=== PATIENT | female | born 1995 | race Caucasian/White ===

== ENCOUNTER 2016-08-14 09:43 | Emergency (ER) | payer OTHER ==
[~2016-08-14] VITALS: Ht 154.9 cm; Wt 53.8 kg
[2016-08-14 09:45] VITALS: TEMP 36.6; Ht 154.9 cm; Wt 53.8 kg
[2016-08-14] MEDS ORDERED: XYLOCAINE 1%/SOD BICARB 20 ML VIAL INFIL STA (09:53)
--- NOTE | 2016-08-14 09:59 | EMERGENCY ROOM VISIT NOTE ---
History Report prepared by Liz: Deny Ch Under the Supervision of: Dr. Ayo Santana M.D. 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 The patient was cutting cilantro while working at [employer] when she accidently cut the finger, which has been bleeding since. The pain associated with the cut is rated 7/10 in severity. The patient has had a tetanus shot within the past 10 years. Source of History: patient Onset: earlier this morning Position: finger(s) (second left) Symptom Intensity: 7/10 Quality: other (laceration) Timing: constant Review of Systems See HPI for pertinent positives & negatives. A total of 10 systems reviewed and were otherwise negative. Past Medical & Surgical Medical Problems: (1) No known health problems Family History No pertinent family history Social History Smoking Status: Current Every Day Smoker Alcohol Use: occasionally Occupation Status: employed Current/Historical Medications Scheduled Pantoprazole (Protonix), 40 MG PO DAILY Phenazopyridine HCl (Pyridium), 200 MG PO TID Sulfamethoxazole-Trimethoprim (Bactrim Ds 800MG/160MG), 1 TAB PO BID Scheduled PRN Ondansetron Hcl (Zofran), 4 MG PO Q8 PRN for Nausea Allergies Coded Allergies: No Known Allergies (Unverified , 08/14/16) Physical Exam Vital Signs Date Time Temp Pulse Resp B/P Pulse Ox O2 Delivery O2 Flow Rate FiO2 08/14/16 11:03 65 16 98/58 97 Room Air 08/14/16 09:45 36.6 74 18 111/70 100 Room Air Physical Exam GENERAL: Patient is a healthy-appearing well-nourished HEAD: Normocephalic atraumatic EYES: Ocular movements intact pupils equal and react to light OROPHARYNX mucous membranes are moist no exudates present no erythema or edema present NECK: Supple no nuchal rigidity CHEST: Good equal expansion LUNGS: Clear and equal to auscultation CARDIAC: Normal S1 and S2 ABDOMEN: Soft nontender no guarding BACK: No CVA tenderness EXTREMITIES: Tri-stellate laceration 2.6 cm in total length to the left second finger. NEURO: Patient is following commands is answering questions appropriately. Alert and oriented x3 Cranial Nerves 2-12 grossly intact Medical Decision & Procedures Procedure Location: Left 2nd finger. Total length: 2.6 cm. Complexity: Tri-stellate. Verbal consent was obtained after the risks and benefits were explained, including but not limited to bleeding, scarring, infection, pain, and bone/joint /nerve damage. At this time, the risks of the procedure are less than the risks of NOT performing the procedure. A time out was taken and the correct patient and site identified. The skin was prepped with betadine. The target area was anesthetized with 1% lidocaine without epinephrine. The skin was re-prepped with betadine and a sterile field set. The wound was explored for foreign bodies and none found. Examination revealed no injury to deep structures such as tendons, bone, or significant blood vessels. Debridement was not performed. The wound edges were approximated using 8, 4-0 simple interrupted nylon sutures. Hemostasis and excellent approximation was achieved. Antibacterial ointment and a sterile dressing applied. Detailed wound care instructions and signs and symptoms of infection reviewed with the patient. No complications and the patient tolerated the procedure well. ED Course 0952: Past medical records reviewed. The patient was evaluated in room B3b. A complete history and physical examination was performed. 0955: Laceration repaired by my Nurse Practitioner student under my supervision. Please see procedural note above. 1055: Reassessed the patient. Discussed the treatment plan with the patient and her mother. They verbalized understanding and agreement. The patient is ready for discharge. Medical Decision This is a 21-year-old female who presents emergency Department with a laceration to her finger. Her tetanus is up-to-date. The laceration was repaired as above. The patient will follow-up in 7-10 days to have the sutures removed. Patient was in agreement with treatment plan. Impression Primary Impression: Laceration Scribe Attestation The scribe's documentation has been prepared under my direction and personally reviewed by me in its entirety. I confirm that the note above accurately reflects all work, treatment, procedures, and medical decision making performed by me. Departure Information Dispostion Home / Self-Care Referrals Barrie Goodwin D.O. (PCP) Forms HOME CARE DOCUMENTATION FORM, IMPORTANT VISIT INFORMATION, School Instructions, Work Instructions Patient Instructions ED Laceration Ext Skin Glue, ED Scar Tips to Minimize, [facility] Additional Instructions Sutures out in 7-10 days You have been examined and treated today on an emergency basis only. This is not a substitute for, or an effort to provide, complete comprehensive medical care. It is impossible to recognize and treat all injuries or illnesses in a single emergency department visit. It is therefore important that you follow up closely with Dr Goodwin. Call as soon as possible for an appointment. Thank you for your time and consideration. I look forward to speaking with you again soon. Please don't hesitate to call us if you have any questions.
[2016-08-14 11:03] VITALS: BP 98/58; PULSE 65; O2SAT 97
[2016-08-14] MEDS ORDERED: ONDA4TAB46 PO (11:04)
[2016-08-14] MEDS ORDERED: PHEN-876 PO (11:04)
[2016-08-14] MEDS ORDERED: SULF800T23 PO (11:04)
[2016-08-14] MEDS ORDERED: PANT40TA PO (11:04)
== END 2016-08-14 11:10 | disposition home or self-care (01) ==
LOC: C.EDB 09:46
DX: S61.211A Laceration without foreign body of left index finger without damage to nail, initial encounter (principal); W26.0XXA Contact with knife, initial encounter; F17.200 Nicotine dependence, unspecified, uncomplicated

== ENCOUNTER 2017-04-27 22:55 | Inpatient (IN) | payer BC, OTHER ==
[~2017-04-27] VITALS: Ht 154.9 cm; Wt 63.6 kg
[~2017-04-27 22:55] MED LIST: ONDA4TAB46 PO; PANT40TA PO; PHEN-876 PO; SULF800T23 PO
[2017-04-27] MEDS ORDERED: PRENTAB26 PO (23:42)
[2017-04-27] MEDS ORDERED: NURSING VERBAL MED ORDER ONE (23:45)
[2017-04-27 23:47] VITALS: Ht 154.9 cm; Wt 63.6 kg
[2017-04-28 00:04] LABS: HEMATOCRIT 35.9 % (37-47); MEAN CELL VOLUME 92.1 fL (80-100); MEAN CORPUSCULAR HEMOGLOBIN 31.5 pg (25-34); MEAN CORPUSCULAR HGB CONC 34.3 g/dl (32-36); MEAN PLATELET VOLUME 10.5 fL (7.4-10.4); PLATELET COUNT 210 K/uL (130-400); WHITE BLOOD COUNT 10.44 K/uL (4.8-10.8)
[2017-04-28] MEDS ORDERED: LACTATED RINGER'S 1000ML 1,000 ML IV ONE (01:15)
[2017-04-28] MEDS ORDERED: LACTATED RINGER'S 1000ML 500 ML IV PRN ×2 (07:34→15:59)
[2017-04-28] MEDS ORDERED: OXYTOCIN 30 UNITS/500ML NSS IV PRN ×2 (07:45→22:45)
[2017-04-28] MEDS: LACTATED RINGER'S 1000ML 1,000 ML IV SCH ×3 (09:06→18:45)
[2017-04-28] MEDS ORDERED: BUTORPHANOL TARTRATE 1 MG/ML VIAL IV STA (11:49)
[2017-04-28] MEDS ORDERED: FENTANYL 2MCG/ML ROPIV 1.25MG/ML 100ML BAG EPI ONE (14:04)
[2017-04-28] MEDS ORDERED: BUPIVACAINE 0.25% 30 ML VIAL ONE (14:04)
[2017-04-28] MEDS ORDERED: EpHEDrine SULFATE INJ 50 MG/ML AMP ONE (14:04)
[2017-04-28] MEDS ORDERED: FENTANYL CITRATE INJ 50 MCG/1 ML 2 ML VIAL ONE (14:05)
[2017-04-28] MEDS: AMPICILLIN IV 1 GM in SODIUM CHLOR 0.9% AD-VAN 50ML 50 ML IV SCH ×3 (15:08→20:22)
[2017-04-28] MEDS ORDERED: NALOXONE HCL INJ 1 MG in SODIUM CHLORIDE 0.9% 1000ML 1,000 ML IV PRN (15:59)
[2017-04-28] MEDS ORDERED: PROMETHAZINE HCL INJ 6.25 MG in SODIUM CHLORIDE 0.9% 50ML 50 ML IV PRN (16:00)
[2017-04-28] MEDS ORDERED: EpHEDrine SULFATE INJ 50 MG/ML AMP IV PRN (16:00)
[2017-04-28] MEDS ORDERED: FENTANYL 2MCG/ML ROPIV 1.25MG/ML 100ML BAG EPI PRN (16:00)
[2017-04-28] MEDS ORDERED: NALOXONE HCL INJ 0.4 MG/1 ML VIAL/CARP IV PRN (16:00)
[2017-04-28] MEDS ORDERED: DiphenhydrAMINE HCL 50 MG/ML VIAL IV PRN (16:00)
[2017-04-28] MEDS ORDERED: NALBUPHINE HCL INJ 10 MG/ML AMP IV PRN (16:00)
[2017-04-28] MEDS ORDERED: ONDANSETRON INJ 2 MG/ML 2 ML VIAL IV PRN (16:00)
[2017-04-28] MEDS ORDERED: CLINDAMYCIN IV 600 MG in DEXTROSE 5% 50ML 50 ML IV STA (22:28)
[2017-04-28] MEDS ORDERED: NURSING VERBAL MED ORDER ONE (22:30)
--- NOTE | 2017-04-28 22:40 | Anesthesia Procedure Note ---
Anesthesia Epidural Removal Nt Date & Time Apr 28, 2017 at 22:40 Vital Signs Pain Intensity: 3.0 Notes Mental Status: alert / awake / arousable, participated in evaluation Nausea / Vomiting: adequately controlled Pain: adequately controlled Airway Patency, RR, SpO2: stable & adequate BP & HR: stable & adequate Hydration State: stable & adequate Neuraxial Anesthesia: was administered Anesthetic Complications: no major complications apparent, pt satisfied with anesthetic care Epidural: removed without complications, with tip intact
[2017-04-28] MEDS ORDERED: OXYCODONE/ACETAMINOPHEN 5-325 TAB PO PRN (22:45)
[2017-04-28] MEDS ORDERED: SUPERCREAM 0.870 % 15GM JAR EXT PRN (22:45)
[2017-04-28] MEDS ORDERED: HYDROCORTISONE ACETATE 25 MG SUPP PR PRN (22:45)
[2017-04-28] MEDS ORDERED: LANOLIN OINT EXT PRN ×2 (22:45)
[2017-04-28] MEDS ORDERED: BENZOCAINE 20% AER SPR 82.5 GM CAN EXT PRN (22:45)
[2017-04-28] MEDS ORDERED: MISOPROSTOL 200 MCG TAB PR ONE (22:45)
[2017-04-29] VITALS (7 sets, daily range): BP systolic 98–108; BP diastolic 64–75; PULSE 72–90; TEMP 36.4–36.8; O2SAT 99
--- NOTE | 2017-04-29 00:45 | DELIVERY SUMMARY ---
DATE OF OPERATION: 04/28/2017 TIME OF DELIVERY OF BABY: 22:05 p.m. TIME OF DELIVERY OF PLACENTA: 22:14 p.m. DETAILS OF DELIVERY: The patient was found to be fully dilated and desired to push. She pushed for 10 minutes and delivered the head without difficulty. Shoulders were delivered with minimal traction. Baby was handed off to the mother where mouth and nose were suctioned, and cord was clamped x2 and cut, it was 3 vessels cord. Cord blood was obtained. Per patient's request cord blood collection was done on its special kit. Then vagina and perineum were checked for lacerations, there were small first degree labial lacerations on both sides, they were repaired with 3-0 Vicryl and SH needle. Excellent hemostasis was achieved. Rest of the vagina and perineum were intact. Placenta was found to be in the vagina and delivered spontaneously intact and complete. Uterus was explored. Anterior and right lateral boyd were found to be irregular and then small piece of membranes were retrieved manually, and then with Boom curette the anterior and right uterine wall were curetted. Fundus was held by JOSE MANUEL Poole during the procedure. Small pieces of membranes and products of conception obtained, and then small blood cloth was retrieved. The procedure was ended. The patient had good pain control through her epidural. Fundus was firm. EBL was 200. Pitocin IV infusion was started. Mother was on IV ampicillin due to prolonged rupture of membranes. Her temperature right after delivery was 100.4, and baby's temperature was 101 Fahrenheit, and patient was given single dose of clindamycin due to curette. Mom and baby tolerated the procedure well. Sponge, lap and needle counts were correct x2. The baby was a viable female infant with Apgars 9/10. No complications happened, and I was present during whole procedure. I attest to the content of the Intraoperative Record and any orders documented therein. Any exceptions are noted below. MTDD
[2017-04-29] MEDS: IBUPROFEN 600 MG TAB PO PRN ×3 (01:28→18:35)
[2017-04-29] MEDS: AMPICILLIN IV 1 GM in SODIUM CHLOR 0.9% AD-VAN 50ML 50 ML IV SCH ×4 (02:30→20:08)
[2017-04-29] MEDS: LACTATED RINGER'S 1000ML 1,000 ML IV SCH ×2 (02:35→13:35)
[2017-04-29] MEDS: CLINDAMYCIN IV 600 MG in DEXTROSE 5% 50ML 50 ML IV SCH ×3 (05:35→23:46)
[2017-04-29 06:20] LABS: HEMATOCRIT 32.7 % (37-47)
[2017-04-29] MEDS: DOCUSATE SODIUM 100 MG CAP PO SCH ×2 (08:03→20:08)
[2017-04-29] MEDS: PRENATAL VITAMIN TAB PO SCH (08:03)
[2017-04-29] MEDS: FERROUS SULFATE 325 MG TAB PO SCH (08:04)
[2017-04-29] MEDS ORDERED: DIPHTHERIA/TETANUS/PERTUSSIS 0.5 ML SYR/VIAL IM. ONE (09:00)
[2017-04-29] MEDS ORDERED: MEASLES, MUMPS & RUBELLA VIRUS VIAL SQ. ONE (09:00)
[2017-04-29] MEDS: ACETAMINOPHEN 325 MG TAB PO PRN ×2 (11:49→15:34)
[2017-04-29] MEDS ORDERED: BISACODYL 5 MG TABEC PO SCH (20:00)
--- NOTE | 2017-04-29 20:06 | OB/GYN Progress Note ---
PLASTIC SURGERY ASSISTANT Progress Note Date of Service Apr 29, 2017. Subjective conversation w/ patient, physical exam Ambulation: ambulating normally Voiding: no voiding problems Passing Gas: Yes Diet Tolerance: Regular Diet Lochia: Moderate Feeding Type: Breast Feeding Review of Systems Constitutional: No fever, No chills, No sweats, No weight loss, No weakness, No fatigue, No problem reported Respiratory: No cough, No sputum, No wheezing, No shortness of breath, No dyspnea on exertion, No dyspnea at rest, No hemoptysis, No problem reported Cardiac: No chest pain, No orthopnea, No PND, No edema, No claudication, No palpitations, No problem reported Breast: No see HPI, No breast lump, No change in shape, No nipple discharge, No breast pain, No problem reported Abdomen: No pain, No nausea, No vomiting, No diarrhea, No constipation, No GI bleeding, No problem reported Female : No see HPI, No dysuria, No urinary frequency, No hematuria, No incontinence, No abnormal vaginal bleeding, No vaginal discharge, No problem reported Objective Vital Signs Date Time Temp Pulse Resp B/P (MAP) Pulse Ox O2 Delivery O2 Flow Rate FiO2 04/29/17 16:00 36.6 79 16 102/69 (80) 04/29/17 12:00 36.6 76 16 99/66 (77) 04/29/17 09:32 99 Room Air 04/29/17 08:56 36.4 72 18 102/64 (77) 99 Room Air 04/29/17 05:30 36.5 18 98/64 (75) Room Air 04/29/17 01:50 Room Air 04/29/17 01:50 36.8 90 18 108/75 (86) Room Air Physical Exam General Appearance: WELL-APPEARING, WD/WN, NO APPARENT DISTRESS, uncomfortable Respiratory/Chest: chest non-tender, lungs clear, normal breath sounds, no respiratory distress, no accessory muscle use Cardiovascular: regular rate, rhythm, no edema, no gallop, no JVD, no murmur Abdomen: normal bowel sounds, non tender, soft, no organomegaly, no pulsatile mass Fundus: Firm Extremities: normal range of motion, non-tender, normal inspection, no pedal edema, no calf tenderness Laboratory Results Last 24 Hours Test 04/29/17 06:01 Hemoglobin 11.4 g/dL Hematocrit 32.7 % Assessment and Plan Continue Routine Care: PPD #1 PT DOING WELL NO COMPLAINTS S/P CHORIO- TX WITH AMP AND CLINDAMYCIN AFEBRILE
[2017-04-30 01:05] VITALS: BP 105/58; PULSE 77; TEMP 36.8
[2017-04-30] MEDS: AMPICILLIN IV 1 GM in SODIUM CHLOR 0.9% AD-VAN 50ML 50 ML IV SCH ×3 (02:05→13:45)
[2017-04-30] MEDS: IBUPROFEN 600 MG TAB PO PRN ×3 (02:13→13:44)
[2017-04-30] MEDS: CLINDAMYCIN IV 600 MG in DEXTROSE 5% 50ML 50 ML IV SCH ×2 (06:06→14:27)
[2017-04-30] MEDS ORDERED: BISACODYL 10 MG SUPP PR PRN (07:00)
[2017-04-30 07:27] LABS: HEMATOCRIT 32.1 % (37-47); MEAN CELL VOLUME 94.4 fL (80-100); MEAN CORPUSCULAR HEMOGLOBIN 32.1 pg (25-34); MEAN PLATELET VOLUME 10.4 fL (7.4-10.4); PLATELET COUNT 192 K/uL (130-400); WHITE BLOOD COUNT 10.42 K/uL (4.8-10.8)
[2017-04-30] MEDS: PRENATAL VITAMIN TAB PO SCH (08:15)
[2017-04-30] MEDS: FERROUS SULFATE 325 MG TAB PO SCH (08:15)
[2017-04-30] MEDS: DOCUSATE SODIUM 100 MG CAP PO SCH ×2 (08:15→20:22)
[2017-04-30 09:00] VITALS: BP 108/70; PULSE 96; TEMP 36.2
--- NOTE | 2017-04-30 09:24 | OB/GYN Progress Note ---
ENTERTAINMENT REPORTER Progress Note Date of Service Apr 30, 2017. Subjective conversation w/ patient, physical exam Ambulation: ambulating normally, limited ambulation Voiding: no voiding problems Passing Gas: Yes Diet Tolerance: Regular Diet Lochia: Small Feeding Type: Breast Feeding Objective Vital Signs Date Time Temp Pulse Resp B/P (MAP) Pulse Ox O2 Delivery O2 Flow Rate FiO2 04/30/17 01:07 Room Air 04/30/17 01:05 36.8 77 18 105/58 (74) Room Air 04/29/17 20:08 36.5 73 18 103/68 (80) Room Air 04/29/17 16:00 36.6 79 16 102/69 (80) 04/29/17 12:00 36.6 76 16 99/66 (77) 04/29/17 09:32 99 Room Air Physical Exam General Appearance: WELL-APPEARING, NO APPARENT DISTRESS Abdomen: non tender, soft Fundus: Firm Extremities: normal range of motion, non-tender, normal inspection Laboratory Results Last 24 Hours Test 04/30/17 06:40 White Blood Count 10.42 K/uL Red Blood Count 3.40 M/uL Hemoglobin 10.9 g/dL Hematocrit 32.1 % Mean Corpuscular Volume 94.4 fL Mean Corpuscular Hemoglobin 32.1 pg Mean Corpuscular Hemoglobin Concent 34.0 g/dl RDW Standard Deviation 46.9 fL RDW Coefficient of Variation 13.7 % Platelet Count 192 K/uL Mean Platelet Volume 10.4 fL Assessment and Plan Post- Day Number: 2 Continue Routine Care: Continue abx till next dose and then convert to PO
[2017-04-30 15:30] VITALS: BP 101/63; PULSE 73; TEMP 36.8
[2017-04-30 19:30] VITALS: BP 101/56; PULSE 71; TEMP 36.8; O2SAT 99
[2017-04-30] MEDS: AMPICILLIN 250 MG CAP PO SCH (20:23)
[2017-05-01 00:30] VITALS: BP 107/66; PULSE 76; TEMP 36.5; O2SAT 99
[2017-05-01] MEDS: IBUPROFEN 600 MG TAB PO PRN ×2 (01:19→09:23)
[2017-05-01 04:30] VITALS: BP 101/64; PULSE 62; TEMP 36.7; O2SAT 98
[2017-05-01] MEDS ORDERED: MTR600X PO (08:52)
--- NOTE | 2017-05-01 08:54 | Discharge Instructions ---
Discharge Instructions Date of Service May 01, 2017. Admission Reason for Admission: Check Ruptured Membranes Discharge Discharge Diagnosis / Problem: Vaginal delivery Discharge Goals Goal(s): Routine recovery after delivery Medications Continue Dispensed Medications: supercream, dermaplast, tucks Activity Recommendations Activity Limitations: per Instructions/Follow-up section . Instructions / Follow-Up Instructions / Follow-Up ACTIVITY RECOMMENDATIONS: * Gradual return to full activity over the next 2-3 weeks. * No lifting - nothing heavier than baby over the next 2-3 weeks. * Do not engage in vigorous exercise, sexual activity or sports until cleared by your physician. * Do not drive or operate any motorized equipment until cleared by your physician. * You may shower/bathe daily. BREAST CARE: If you are not breast feeding: * Wear a supportive bra 24 hours a day for one to two weeks. * Avoid stimulating your breasts and nipples as much as possible during the first few weeks after delivery. * When taking a shower, have the warm water hit your back, not breasts. * When your breasts feel full, apply ice packs. Usually three to four times a day helps ease the discomfort. * Take a mild pain medication (Tylenol/Motrin) when you are uncomfortable. If breast feeding: * Use breast milk to lubricate nipples. Lansinoh cream may be used for sore nipples. You do not need to remove cream prior to breast feeding. If using a different brand of cream, check the label for directions regarding removal of cream prior to nursing. * Wear a supportive bra. * If having problems with breasts or breast feeding, call a valuation consultant or your health care provider. EPISIOTOMY CARE: After delivery, if you have an episiotomy (stitches), the following steps will ease discomfort and aid healing. * For the first 24 hours after delivery, place ice packs next to your episiotomy to help reduce swelling. * After the first 24 hour-period, sitz baths, either portable or in the tub, are suggested. A shower with a shower arm sprayed over the episiotomy may be comforting. * Mayra care should be done after each voiding and bowel movement. Squirt warm water from a plastic bottle over the perineum (region of the body between the anus and urinary opening) and pat dry. * Use Dermoplast to ease discomfort. Shake container. [place] directly over the episiotomy. * Place a Tucks on a clean sanitary pad next to your episiotomy. OVER THE COUNTER MEDICATION: * For discomfort or pain, you may use Acetaminophen (Tylenol), Ibuprofen (Advil ), or Naproxen (Aleve) following the package directions. * For constipation you may use Colace following the package directions. SPECIAL CARE INSTRUCTIONS: When you are discharged from the hospital, it is important for you to follow the instructions listed below: * During the first week at home, you should be able to care for yourself and your baby. In addition, the usual light household activities are encouraged. * Limit your activities to the way you feel. Do not try to clean the house or move furniture. Be sensible. * If you actively engage in sports and have done so up until the time of your delivery, you may resume these activities as soon as you feel able. This may take up to one month or even longer. Use good judgment. * Continue to take your vitamins for at least six weeks after the of your baby. * Your diet need not be limited unless you were on a special diet before your delivery. Breast-feeding mothers need around 2500 calories per day and at least 64-80 ounces of fluid per day (8 to 10 glasses). * You should eat foods from the four major food groups. Crash diets or fad diets are to be avoided. Eating lean meats, fresh fruits and vegetables, low-fat dairy products, high fiber foods and a regular exercise program, will help you get back to your pre- weight without putting your health at risk. * Constipation is sometimes a problem after delivery. Take a mild laxative as needed. If breast feeding, Milk of Magnesia is acceptable to use. You may use a suppository or Fleets enema if no episiotomy. * A daily shower or tub bath is suggested. Be sure to thoroughly and gently dry the perineum. * A bloody vaginal discharge will usually continue until around four weeks post . A small amount of bleeding may continue for as long as six weeks. Vaginal discharge changes from the bright red bleeding after delivery to pink then brownish and finally yellowish-pink before becoming white and disappearing. * Bleeding may increase with activity. Your first period may come in 4-8 weeks. If you are breast feeding, your period may be delayed even longer. * [place] (sex) can begin whenever both you and your partner feel comfortable and do not have any form of genital infection. It is recommended that you wait until after your return appointment and discuss with your physician. If you have questions, please talk to your health care practitioner. A condom should be used to prevent infection and . * Foreplay, gentle intercourse and lubrication is very important the first several times to prevent pain. A water-based lubricant such as K-Y jelly or Astroglide may be used. * Tampons may be used six weeks after delivery. * Douching should be avoided for 6 weeks after delivery. * If you have RH negative blood and your baby is RH positive, you will receive RHOGAM by injection prior to discharge. The nurse will give you a card to keep with you that has the date and place that you received RHOGAM after delivery. * During your care, you had a Rubella screen done to check for the presence of rubella antibodies in your blood. If your test was negative, you will receive a Rubella vaccine prior to discharge. This vaccine may cause a fever, soreness at the injection site and flu-like symptoms. If these symptoms persist, notify your health care practitioner. is not advised for three months after a Rubella vaccine. There is a higher chance of having a baby with defects if conceived within three months of getting the vaccine. * If you were discharged 24 hours from delivery or before 48 hours: Visiting nurses will come to your home 48 hours after discharge to assess you and your baby. The visiting nurse will meet with you while you are in the hospital to arrange a time and get directions to your home. * Verbalizes understanding of car seat law as reviewed with patient nursing. * Car Seat hand-out given and reviewed with patient by nursing. * Shaken baby information reviewed with patient by nursing. Call you doctor if: * Heavy bleeding (saturating several pads an hour) or passing clots the size of your fist. * A fever >101 degrees F (38.3 degrees C) on two occasions four hours apart and/or chills. * Unusual pain in the pelvic or vaginal areas. * "Baby Blues" lasting longer than two weeks. If you have any questions or concerns, call your health care practitioner at . FOLLOW-UP VISIT: * Please call the office at to schedule a 6 week examination. It is important you keep this appointment. * It is important for you to make arrangements for either yearly or twice yearly check-ups thereafter. Current Hospital Diet Patient's current hospital diet: Regular OB Diet Discharge Diet Recommended Diet: Regular OB Diet Pending Studies Studies pending at discharge: no Medical Emergencies . Who to Call and When: Medical Emergencies: If at any time you feel your situation is an emergency, please call 911 immediately. . Non-Emergent Contact Non-Emergency issues call your: Primary Care Provider, Technical Proposal Writer Call Non-Emergent contact if: you have a fever, your pain is not controlled . . "Provider Documentation" section prepared by Tyson Farnsworth. . VTE Core Measure Inpt VTE Proph given/why not?: Treatment not indicated
[2017-05-01 08:55] VITALS: BP 118/75; PULSE 60; TEMP 36.5; O2SAT 100
[2017-05-01] MEDS ORDERED: MISC-696 (08:55)
--- NOTE | 2017-05-01 09:00 | OB/GYN Progress Note ---
PIT MANAGER Progress Note Date of Service May 01, 2017. Subjective conversation w/ patient, physical exam Ambulation: ambulating normally Voiding: no voiding problems Passing Gas: Yes Diet Tolerance: Regular Diet Lochia: Small Feeding Type: Breast Feeding Pain: 07/30 Notes: Doing well, no concerns. pain well controlled. Lochia minimal. Tolerating regular diet. Ambulating without difficulty. Would like to go home today. Objective Vital Signs Date Time Temp Pulse Resp B/P (MAP) Pulse Ox O2 Delivery O2 Flow Rate FiO2 05/01/17 04:30 36.7 62 18 101/64 (76) 98 Room Air 05/01/17 00:30 99 Room Air 05/01/17 00:30 36.5 76 16 107/66 (80) 99 Room Air 04/30/17 19:30 36.8 71 16 101/56 (71) 99 Room Air 04/30/17 15:30 Room Air 04/30/17 15:30 36.8 73 20 101/63 (76) Room Air 04/30/17 09:00 Room Air 04/30/17 09:00 36.2 96 16 108/70 (83) Room Air Physical Exam General Appearance: WELL-APPEARING Respiratory/Chest: chest non-tender, lungs clear Cardiovascular: regular rate, rhythm Abdomen: normal bowel sounds, soft Fundus: Firm Extremities: normal range of motion, non-tender, no calf tenderness Assessment and Plan Post- Day Number: 3 Continue Routine Care: -D/C home today -Has been afebrile for 48 hours post antibiotics for chorio -F/U in 6 weeks.
[2017-05-01] MEDS: FERROUS SULFATE 325 MG TAB PO SCH (09:23)
[2017-05-01] MEDS: DOCUSATE SODIUM 100 MG CAP PO SCH (09:23)
[2017-05-01] MEDS: PRENATAL VITAMIN TAB PO SCH (09:23)
[2017-05-01] MEDS: AMPICILLIN 250 MG CAP PO SCH ×2 (09:24→12:33)
[2017-05-01 14:10] VITALS: BP_DIAS 75; PULSE 60; TEMP 36.5
== END 2017-05-01 14:10 | disposition home or self-care (01) | DRG 775 ==
LOC: C.OPB 22:55 → C.LD 22:55 → C.OPB 23:41 → C.LD 23:42 → C.OBG 04-29 01:44
PROVIDERS: ADMIT Obstetrics & Gynecology; ATTEND Obstetrics & Gynecology
PROC: 0HQ9XZZ Repair Perineum Skin, External Approach (ICD-10-PCS; principal; 2017-04-28)
PROC: 10E0XZZ Delivery of Products of Conception, External Approach (ICD-10-PCS; principal; 2017-04-28)
DX: O70.0 First degree perineal laceration during delivery (principal); Z37.0 Single live birth; Z3A.39 39 weeks gestation of pregnancy